=== PATIENT | female | born 1980 | race Caucasian/White ===

== ENCOUNTER → 2016-12-18 | Outpatient (CLI) | payer OTHER ==
[~2016-12-18] MED LIST: PRLSR20 PO; TRAZ100T29 PO
--- NOTE | 2016-12-18 15:19 | DIAGNOSTIC IMAGING REPORT ---
RIGHT UPPER EXTREMITY VENOUS DOPPLER CLINICAL HISTORY: Right arm pain and swelling. History of blood clots. Factor V Leiden mutation. COMPARISON STUDY: No previous studies for comparison. FINDINGS: Right internal jugular, subclavian, cephalic, axial, brachial, basilic, radial and ulnar veins are patent. No venous thrombus is identified within the right upper extremity by sonography. IMPRESSION: No deep venous thrombus within the right upper extremity. Electronically signed by: Darwin Porras M.D. 12/18/2016 3:17 PM Dictated Date/Time: 12/18/2016 3:15 PM
== END | disposition home or self-care (01) ==
LOC: C.ULTR 14:32
PROVIDERS: ATTEND Nurse Practitioner
DX: R20.2 Paresthesia of skin (principal); D68.51 Activated protein C resistance; Z86.718 Personal history of other venous thrombosis and embolism